=== PATIENT | male | born 1955 | race Caucasian/White ===

== ENCOUNTER 2018-08-05 09:07 | Emergency (ER) | payer OTHER ==
[~2018-08-05] VITALS: Ht 165.1 cm; Wt 70.8 kg
[2018-08-05 09:23] VITALS: Ht 165.1 cm; Wt 70.8 kg
[2018-08-05 11:59] LABS: CALCIUM 8.9 mg/dL (8.5-10.1); CARBON DIOXIDE 25.5 mmol/L (21-32); CREATININE SERUM 1.3 mg/dL (0.7-1.3); POTASSIUM SERUM 4.8 mmol/L (3.5-5.1)
[2018-08-05 12:04] LABS: BILIRUBIN TOTAL 0.16 mg/dL (0.20-1.00)
[2018-08-05 12:05] LABS: ALBUMIN 1.9 g/dL (3.4-5.0); TOTAL PROTEIN, SERUM 6.1 g/dL (6.4-8.2)
[2018-08-05 12:18] LABS: BASOPHIL % 0.5 % (0-2); PLATELET COUNT 260 x10^3mcL (130-400); RED CELL DISTRIBUTION WIDTH 12.9 % (11.5-14.5)
[2018-08-05 13:02] LABS: ERYTHROCYTE SED RATE 65 mm/hr (0-20)
[2018-08-05 13:52] VITALS: BP 180/106
== END 2018-08-05 13:50 | disposition short-term general hospital (02) ==
LOC: ED 09:07
PROVIDERS: Emergency Medicine
DX: H54.61 Unqualified visual loss, right eye, normal vision left eye (principal); R51 Headache; I10 Essential (primary) hypertension; E11.9 Type 2 diabetes mellitus without complications
CPT/HCPCS: 36415

== ENCOUNTER → 2018-09-25 | Outpatient (CLI) | payer OTHER, MEDICAID ==
[2018-09-25 09:35] LABS: BASOPHIL % 0.5 % (0-2); PLATELET COUNT 297 x10^3mcL (130-400)
[2018-09-25 09:39] LABS: IRON 65 ug/dL (65-170); TOTAL IRON BINDING CAPACITY 286 ug/dL (250-450)
[2018-09-25 09:40] LABS: RED CELL DISTRIBUTION WIDTH 14.6 % (11.5-14.5)
[2018-09-25 09:44] LABS: ALBUMIN 1.9 g/dL (3.4-5.0); BILIRUBIN TOTAL 0.2 mg/dL (0.20-1.00); CALCIUM 8.5 mg/dL (8.5-10.1); CARBON DIOXIDE 27.4 mmol/L (21-32); CHOLESTEROL/HDL RATIO 5.5; CREATININE SERUM 1.4 mg/dL (0.7-1.3); FREE T4 0.89 ng/dL (0.76-1.46); MAGNESIUM 1.9 mg/dL (1.8-2.4); POTASSIUM SERUM 3.7 mmol/L (3.5-5.1); TOTAL PROTEIN, SERUM 6.3 g/dL (6.4-8.2); URIC ACID 6.1 mg/dL (3.5-7.2)
[2018-09-25 11:19] LABS: microscopic required? YES; urine erythrocyte 1+ (NEGATIVE)
== END | disposition home or self-care (01) ==
LOC: LB 08:14
DX: Z00.00 Encounter for general adult medical examination without abnormal findings (principal); E11.9 Type 2 diabetes mellitus without complications; I10 Essential (primary) hypertension; E78.5 Hyperlipidemia, unspecified
CPT/HCPCS: 84153; 84439; 86431

== ENCOUNTER 2019-04-30 10:33 | Emergency (ER) | payer OTHER ==
[~2019-04-30] VITALS: Ht 165.1 cm; Wt 75.3 kg
[2019-04-30 10:37] VITALS: Ht 165.1 cm; Wt 75.3 kg
[2019-04-30 11:51] LABS: BASOPHIL % 0.7 % (0-2); PLATELET COUNT 214 x10^3mcL (130-400); RED CELL DISTRIBUTION WIDTH 14.1 % (11.5-14.5)
[2019-04-30 12:04] LABS: CARBON DIOXIDE 28.4 mmol/L (21-32); CREATININE SERUM 2.1 mg/dL (0.7-1.3); POTASSIUM SERUM 4.6 mmol/L (3.5-5.1)
[2019-04-30 12:15] LABS: BILIRUBIN TOTAL 0.17 mg/dL (0.20-1.00); MAGNESIUM 1.6 mg/dL (1.8-2.4); T4(THYROXINE) 7.7 ug/dL (4.7-13.3)
[2019-04-30 12:18] LABS: TOTAL PROTEIN, SERUM 5.8 g/dL (6.4-8.2)
[2019-04-30 13:12] VITALS: BP 144/88
[2019-04-30 13:12] LABS: microscopic required? YES; urine erythrocyte 2+ (NEGATIVE)
[2019-04-30 13:18] LABS: AMPHETAMINE QUAL UR NONE DETECTED (See below)
== END 2019-04-30 13:12 | disposition left against medical advice (07) ==
LOC: ED 10:33
PROVIDERS: Emergency Medicine
DX: I10 Essential (primary) hypertension (principal); I12.9 Hypertensive chronic kidney disease with stage 1 through stage 4 chronic kidney disease, or unspecified chronic kidney disease; E11.22 Type 2 diabetes mellitus with diabetic chronic kidney disease; N18.4 Chronic kidney disease, stage 4 (severe); E88.09 Other disorders of plasma-protein metabolism, not elsewhere classified; E11.319 Type 2 diabetes mellitus with unspecified diabetic retinopathy without macular edema
CPT/HCPCS: 36415; 83880; Q0092